=== PATIENT | male | born 2000 | race Caucasian/White ===

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

== ENCOUNTER 2019-02-08 09:52 | Emergency (ER) | payer OTHER ==
--- NOTE | 2019-02-08 10:20 | ED ---
Throat Pain/Nasal Congestion - HPI Summary HPI Summary: This pt is 18 y/o male [facility] [place] throat for the past 2 days, worsening today. Pt reports today he has worse pain in his throat and states he felt like it was harder to swallow secondary to pain. Denies fever or chills. Pt denies any other complaints. Per nurse's note, he has tried salt water gargles without relief. Denies any PMHx. No surgeries. Pt does vape, which he began to do 3 years ago. Denies tobacco use. - History of Current Complaint Chief Complaint: EDThroatPain Time Seen by Provider: 02/08/19 10:08 Hx Obtained From: Patient Onset/Duration: Lasting Days - 2, Still Present Severity: Severe Associated Signs And Symptoms: Positive: Negative Cough: None - Allergies/Home Medications Allergies/Adverse Reactions: Allergies Allergy/AdvReac Type Severity Reaction Status Date / Time No Known Allergies Allergy Verified 02/08/19 10:07 PMH/Surg Hx/FS Hx/Imm Hx Endocrine/Hematology History: Denies: Hx Diabetes Cardiovascular History: Denies: Hx Hypertension - Surgical History Surgical History: None Infectious Disease History: No Infectious Disease History: Denies: Traveled Outside the [place] in Last 30 Days - Family History Known Family History: Negative: Hypertension, Diabetes - Social History Alcohol Use: None Substance Use Type: Reports: None Substance Use Comment - Amount & Last Used: Marijuana in the past Hx Tobacco Use: Yes Smoking Status (MU): Never Smoked Tobacco Type: eCigarettes Have You Smoked in the Last Year: No Review of Systems Negative: Fever, Chills ENT: Other - POSITIVE: throat closing Positive: Sore Throat Musculoskeletal: Negative Skin: Negative All Other Systems Reviewed And Are Negative: Yes Physical Exam - Summary Physical Exam Summary: VITAL SIGNS: Reviewed. GENERAL: Patient is a well-developed and nourished male who is lying comfortable in the stretcher. Patient is not in any acute respiratory distress. HEAD AND FACE: No signs of trauma. No ecchymosis, hematomas or skull depressions. No sinus tenderness. EYES: PERRLA, EOMI x 2, No injected conjunctiva, no nystagmus. EARS: Hearing grossly intact. Ear canals and tympanic membranes are within normal limits. MOUTH: Swelling of the left tonsil with some ulcerations and pus. NECK: Supple, trachea is midline, no adenopathy, no JVD, no carotid bruit, no c- spine tenderness, neck with full ROM. CHEST: Symmetric, no tenderness at palpation LUNGS: Clear to auscultation bilaterally. No wheezing or crackles. CVS: Regular rate and rhythm, S1 and S2 present, no murmurs or gallops appreciated. ABDOMEN: Soft, non-tender. No signs of distention. No rebound no guarding, and no masses palpated. Bowel sounds are normal. EXTREMITIES: FROM in all major joints, no edema, no cyanosis or clubbing. NEURO: Alert and oriented x 3. No acute neurological deficits. Speech is normal and follows commands. SKIN: Dry and warm Triage Information Reviewed: Yes Vital Signs On Initial Exam: Initial Vitals Temp Pulse Resp BP Pulse Ox 98.5 F 85 18 145/82 100 02/08/19 10:03 02/08/19 10:03 02/08/19 10:03 02/08/19 10:03 02/08/19 10:03 Vital Signs Reviewed: Yes Diagnostics - Vital Signs Vital Signs Temp Pulse Resp BP Pulse Ox 02/08/19 10:03 98.5 F 85 18 145/82 100 - Laboratory Result Diagrams: 02/08/19 11:10 02/08/19 11:10 Lab Statement: Any lab studies that have been ordered have been reviewed, and results considered in the medical decision making process. - CT Neck CT CT Interpretation Completed By: Radiologist Summary of CT Findings: IMPRESSION: There is asymmetric enlargement of the left palatine tonsil without a ring enhancing lesion or loculated fluid collection. There is ill-defined hypoattenuation suggestive of phlegmon versus early abscess. Dr. Ogden has reviewed this report. Re-Evaluation - Re-Evaluation First Eval Re-Evaluation Time: 14:20 Comment: Reviewed results and discharge plan with pt. He understands and agrees. EENT Course/Dx - Course Assessment/Plan: Blood work without any significant abnormality except for chloride of 100, CRP is 13.0, monoscreen is negative, rapid strep is negative. Soft tissue neck CT IMPRESSION: THERE IS ASYMMETRIC ENLARGEMENT OF THE LEFT PALATINE TONSIL WITHOUT A RING ENHANCING LESION OR LOCULATED FLUID COLLECTION. THERE IS ILL-DEFINED HYPOATTENUATION SUGGESTIVE OF PHLEGMON VERSUS EARLY ABSCESS. I discussed my physical exam and findings with Dr. Agosto from ENT and he recommends for the patient to be started on antibiotics and prednisone. The patient will be discharged home with follow-up at his office in the next couple days. At this point the patient is hemodinamically stable, alert and oriented 3 and he is able to swallow without any difficulty. He was given instructions to return to the emergency room immediately if he develops any difficulty swallowing, difficulty breathing. The patient understands and agrees. - Diagnoses Provider Diagnoses: Pharyngitis - Provider Notifications Discussed Care Of Patient With: Aldo Agosto Time Discussed With Above Provider: 14:01 Instructed by Provider To: Other - Discussed with Dr. Agosto, ENT, who recommends antibiotics, prednisone, discharging the pt home and follow up as an outpatient in his office. Discharge ED - Sign-Out/Discharge Documenting (check all that apply): Patient Departure - Discharge home Patient Received Moderate/Deep Sedation with Procedure: No - Discharge Plan Condition: Stable Disposition: HOME Prescriptions: Amoxicillin/Clavulanate TAB* [Augmentin TAB 875*] 875 mg PO BID #20 tab predniSONE TAB* [Deltasone 20 MG TAB*] 40 mg PO DAILY #8 tab Patient Education Materials: Pharyngitis (ED) Referrals: Aldo Agosto MD [Medical Doctor] - Jessie Vaca MD [Primary Care Provider] - Additional Instructions: Follow up with Dr. Agosto, ENT, in the next couple of days. RETURN TO THE EMERGENCY DEPARTMENT FOR ANY WORSENING OR NEW SYMPTOMS. - Billing Disposition and Condition Condition: STABLE Disposition: Home - Attestation Statements Document Initiated by Karel: Yes Documenting Scribe: Julianna Hoffman Provider For Whom Karel is Documenting (Include Credential): Aquilino Ogden MD Scribe Attestation: Julianna See scribed for Aquilino Ogden MD on 02/08/19 at 2136. Scribe Documentation Reviewed: Yes Provider Attestation: The documentation as recorded by the Julianna will accurately reflects the service I personally performed and the decisions made by me, Aquilino Ogden MD Status of Scribe Document: Viewed
[2019-02-08 10:45] LABS: Rapid Strep Molecular Negative (Negative)
[2019-02-08] MEDS ORDERED: NS 0.9% 1000 ML** 1,000 ML IV ONE (10:53)
[2019-02-08 11:16] LABS: ABS Eosinophils 0.2 10^3/ul (0-0.6); ABS Lymphocytes 0.9 10^3/ul (1.0-4.8); ABS Monocytes 0.9 10^3/ul (0-0.8); ABS Neutrophils 6.8 10^3/ul (1.5-7.7); Eosinophil % 1.8 %; Hematocrit 42 % (42-52); Hemoglobin 14.5 g/dL (14.0-18.0); Lymphocyte % 10.1 %; Mean Corpuscular HGB Conc 35 g/dL (31-36); Mean Corpuscular Hemoglobin 29 pg (27-31); Mean Corpuscular Volume 84 fL (80-94); Mean Platelet Volume 7.5 fL (7.4-10.4); Nucleated Red Blood Cells % 0.1; Platelet Count 228 10^3/uL (150-450); Red Blood Count 4.99 10^6 /uL (4.18-5.48); Red Cell Distribution Width 14 % (10-15); White Blood Count 8.8 10^3/uL (3.5-10.8)
[2019-02-08] MEDS ORDERED: Nicotine* 4MG (FRUIT FLAVOR) GUM PO ONE (11:28)
[2019-02-08 12:03] LABS: C Reactive Protein 13.03 mg/L (<8.01)
[2019-02-08] MEDS ORDERED: Iodixanol* (CONTRAST) 320 MG/ML 100 ML SDV IV ONE (12:21)
[2019-02-08 12:27] LABS: Albumin 4.7 g/dL (3.2-5.2); Albumin/Globulin Ratio 1.7 (1-3); BUN/Creatinine Ratio 15.1 (8-20); Calcium 9.5 mg/dL (8.6-10.3); EGFR African American 138.6 (>60); EGFR Non-African American 114.6 (>60); Globulin 2.8 g/dL (2-4); Potassium 4.2 mmol/L (3.5-5.0); Total Bilirubin 0.7 mg/dL (0.2-1.0); Total Protein 7.5 g/dL (6.4-8.9)
[2019-02-08] MEDS ORDERED: Nicotine* 4MG (FRUIT FLAVOR) GUM PO PRN (12:38)
[2019-02-08] MEDS ORDERED: predniSONE TAB* 20 MG PO ONE (14:03)
[2019-02-08] MEDS ORDERED: Amoxicillin/Clavulanate TAB* 875 MG PO SCH (14:30)
[2019-02-08 15:06] VITALS: BP 141/89
== END 2019-02-08 14:35 | disposition home or self-care (01) ==
LOC: ED 09:52
DX: J02.9 Acute pharyngitis, unspecified (principal); F17.290 Nicotine dependence, other tobacco product, uncomplicated
CPT/HCPCS: 36415; 70491; 80053; 83605; 85025; 86140; 86308; 87651; 96360; 96361; 99282; A9270-GY; J7512; Q9967

== ENCOUNTER 2019-05-18 04:24 | Emergency (ER) | payer OTHER ==
--- NOTE | 2019-05-18 04:54 | ED ---
Psychiatric Complaint - HPI Summary HPI Summary: 19 y/o male presented to [facility] complaining of anxiety and a suspected panic attack occurring around 0200 05/18/19 which he notes as never occurring before. He was playing games last night and went to bed, then after thinking normal thoughts he began feeling anxious and his body would not let him fall asleep. He continued his attempts to sleep but began hyperventilating and watched a video to calm himself down. Around 0200 his anxiety worsened and he drank large amounts of water. He became diaphoretic and began having trouble breathing. Patient has a non-pruritic rash that has been present for 2 months and has expanded over time. He vapes nicotine, has no PMHx related to this incident and his mother has a cardiac Hx. - History Of Current Complaint Chief Complaint: EDGeneral Time Seen by Provider: 05/18/19 04:39 Hx Obtained From: Patient, Family/Building Superintendent Onset/Duration: Gradual Onset Timing: Hours Character: Anxious Aggravating Factor(s): Nothing Alleviating Factor(s): Nothing Associated Signs And Symptoms: Positive: Sleep Disturbance Related History: Negative For: Prior Psychiatric Issues - Allergies/Home Medications Allergies/Adverse Reactions: Allergies Allergy/AdvReac Type Severity Reaction Status Date / Time No Known Allergies Allergy Verified 05/18/19 04:27 PMH/Surg Hx/FS Hx/Imm Hx Endocrine/Hematology History: Denies: Hx Diabetes Cardiovascular History: Denies: Hx Hypertension History: Denies: Hx Renal Disease - Surgical History Surgical History: None Surgery Procedure, Year, and Place: none Infectious Disease History: No Infectious Disease History: Denies: Traveled Outside the [place] in Last 30 Days - Family History Known Family History: Positive: Cardiac Disease - mother Negative: Hypertension, Diabetes - Social History Alcohol Use: Weekly Substance Use Type: Reports: None Substance Use Comment - Amount & Last Used: Marijuana in the past Hx Tobacco Use: Yes Smoking Status (MU): Heavy Every Day Tobacco Smoker Type: eCigarettes Have You Smoked in the Last Year: No Review of Systems Positive: Skin Diaphoresis Positive: Other - hyperventilation Positive: Rash - non-pruritic Positive: Anxious All Other Systems Reviewed And Are Negative: Yes Physical Exam - Summary Physical Exam Summary: Constitutional: Well-developed, Well-nourished, Alert. (-) Distressed Skin: Warm, Dry, hyperpigmented macules to right AC HENT: Normocephalic; Atraumatic Eyes: Conjunctiva normal Neck: Musculoskeletal ROM normal neck. (-) JVD, (-) Stridor, (-) Nuchal rigidity Cardio: Rhythm regular, rate normal, Heart sounds normal; Intact distal pulses; Radial pulses are 2+ and symmetric. (-) Murmur Pulmonary/Chest wall: Effort normal. (-) Respiratory distress, (-) Wheezes, (-) Rales Abd: Soft, (-) tenderness, (-) Distension, (-) Guarding, (-) Rebound Musculoskeletal: (-) Edema Lymph: (-) Cervical adenopathy Neuro: Alert, Oriented x3 Psych: Mildly anxious Triage Information Reviewed: Yes Vital Signs On Initial Exam: Initial Vitals Temp Pulse Resp BP Pulse Ox 98.2 F 99 16 146/94 98 05/18/19 04:25 05/18/19 04:25 05/18/19 04:25 05/18/19 04:25 05/18/19 04:25 Vital Signs Reviewed: Yes Procedures - Sedation Patient Received Moderate/Deep Sedation with Procedure: No Diagnostics - Vital Signs Vital Signs Temp Pulse Resp BP Pulse Ox 05/18/19 04:25 98.2 F 99 16 146/94 98 - Laboratory Result Diagrams: 05/18/19 04:56 05/18/19 04:56 Lab Statement: Any lab studies that have been ordered have been reviewed, and results considered in the medical decision making process. - EKG 0457 Cardiac Rate: NL - 83 bpm EKG Rhythm: Sinus Rhythm Summary of EKG Findings: An EKG at 0457 reveals normal sinus rhythm 83bpm, nml axis, nml intervals. No STEMI. T-wave inversions in lead III and V1. This EKG was reviewed and interpreted by the ED physician. Re-Evaluation - Re-Evaluation First Eval Re-Evaluation Time: 05:15 Comment: Patient declines CXR Course/Dx - Course Course Of Treatment: 19-year-old male with no past medical history presents with episode of anxiety, shortness of breath. physical exam w well-appearing male, lungs clear bilaterally. Discussed with patient plan for labs including CBC, CMP, EKG and chest x-ray. EKG shows sinus rhythm with T-wave inversions in lead 3, no prior. D-dimer obtained given intermittent tachycardia in the ED and history of shortness of breath, well's low risk. D-dimer is less than 200. Lower suspicion for PE. Patient declines chest x-ray this time advised patient to be unable to fully assess his shortness of breath or chest x-ray. No infectious symptoms to suggest PNA. Patient requesting significant for anxiety, given hydroxyzine. Patient denies chest pain at this time. Patient advised return for worsening, sent hydroxyzine to his pharmacy - Differential Dx/Clinical Impression Provider Diagnosis: Shortness of breath Discharge ED - Sign-Out/Discharge Documenting (check all that apply): Patient Departure - dc - Discharge Plan Condition: Stable Disposition: HOME Prescriptions: hydrOXYzine HCL TAB* [Atarax TAB 50 MG *] 50 mg PO BID PRN #20 tab PRN Reason: Anxiety Patient Education Materials: Shortness of Breath (ED) Referrals: Jessie Vaca MD [Primary Care Provider] - Additional Instructions: You were seen in the emergency department for an episode of shortness breath and anxiety. Your labs did not show any abnormalities to cause the symptoms. Please follow up with your primary care doctor in next 2-3 days and return to emergency department for chest pain, trouble breathing, passing out, worsening or concerning symptoms. It was a pleasure taking care of you today. - Billing Disposition and Condition Condition: STABLE Disposition: Home - Attestation Statements Document Initiated by Karel: Yes Documenting Scribe: Ade Osuna Provider For Whom Karel is Documenting (Include Credential): Dr. Bib Ellington MD Scribe Attestation: Ade See scribed for Dr. Bib Ellington MD on 05/18/19 at 0648. Scribe Documentation Reviewed: Yes Provider Attestation: The documentation as recorded by the Ade will accurately reflects the service I personally performed and the decisions made by me, Dr. Bib Ellington MD Status of Scribgracia Document: Viewed
[2019-05-18 05:05] LABS: ABS Eosinophils 0.1 10^3/ul (0-0.6); ABS Lymphocytes 1.7 10^3/ul (1.0-4.8); ABS Monocytes 0.7 10^3/ul (0-0.8); ABS Neutrophils 4.8 10^3/ul (1.5-7.7); Eosinophil % 1.7 %; Hematocrit 42 % (42-52); Hemoglobin 14.5 g/dL (14.0-18.0); Lymphocyte % 23.7 %; Mean Corpuscular HGB Conc 34 g/dL (31-36); Mean Corpuscular Hemoglobin 29 pg (27-31); Mean Corpuscular Volume 83 fL (80-94); Mean Platelet Volume 7.3 fL (7.4-10.4); Nucleated Red Blood Cells % 0.2; Platelet Count 233 10^3/uL (150-450); Red Blood Count 5.06 10^6 /uL (4.18-5.48); Red Cell Distribution Width 14 % (10-15); White Blood Count 7.3 10^3/uL (3.5-10.8)
[2019-05-18 05:20] LABS: Albumin 4.3 g/dL (3.2-5.2); Albumin/Globulin Ratio 1.5 (1-3); BUN/Creatinine Ratio 15.7 (8-20); Calcium 9.3 mg/dL (8.6-10.3); EGFR African American 142.9 (>60); EGFR Non-African American 118.1 (>60); Globulin 2.9 g/dL (2-4); Potassium 3.3 mmol/L (3.5-5.0); Total Bilirubin 0.4 mg/dL (0.2-1.0); Total Protein 7.2 g/dL (6.4-8.9)
[2019-05-18] MEDS ORDERED: Potassium EFFERVESCENT TAB* 25 MEQ TAB.EFF PO ONE (05:25)
[2019-05-18] MEDS ORDERED: Ondansetron ODT TAB* 4 MG PO ONE (06:00)
[2019-05-18] MEDS ORDERED: hydrOXYzine HCL TAB* 50 MG PO ONE (06:26)
[2019-05-18 06:40] VITALS: BP 139/91
== END 2019-05-18 06:40 | disposition home or self-care (01) ==
LOC: ED 04:24
DX: R06.02 Shortness of breath (principal); F17.290 Nicotine dependence, other tobacco product, uncomplicated
CPT/HCPCS: 36415; 80053; 85025; 85379; 93005; 99282; A9270-GY